=== PATIENT | male | born 1995 | race Caucasian/White ===

== ENCOUNTER 2016-08-14 01:27 | Inpatient (IN) | payer SELFPAY ==
[~2016-08-14] VITALS: Ht 182.9 cm; Wt 97.5 kg
[2016-08-14] VITALS (12 sets, daily range): BP systolic 117–145; BP diastolic 63–77
[2016-08-14] MEDS ORDERED: METOCLOPRAMIDE HCL 10 MG/2 ML VIAL. IV PRN (03:45)
[2016-08-14] MEDS: IV NORMAL SALINE 1000ML BAG 1,000 ML IV SCH ×3 (03:55→17:36)
[2016-08-14] MEDS: HYDROMORPHONE 2 MG/ML VIAL. IV PRN ×3 (03:55→17:35)
[2016-08-14] MEDS: PIPERACILLIN/TAZOBACTAM 3.375 GM in IV NORMAL SALINE 50ML 50 ML IV SCH ×2 (06:09→11:34)
--- NOTE | 2016-08-14 08:22 | PDOC2 ---
RONALD FUNEZ BUSINESS ADVISOR 08/14/16 0822: CONSULT Date of Consult Date of Consult DATE: 08/14/16 TIME: 08:16 Reason for Consult Reason for Consult: appendicitis Referring Physician Referring Physician: ER Identification/Chief Complaint Chief Complaint abdominal pain Source Source: Chart review, Patient History of Present Illness Reason for Visit: RLQ pain starting Thursday, by Thursday it was across lower abdomen. Pain is worsening. Associated nausea, no emesis. Aggravated by movement, alleviating factor is stop moving. No constipation or diarrhea. No similar symptoms in past Past Medical History Past Medical History no pertinent hx Past Surgical History Past Surgical History: No pertinent history Family History Family History: Other (noncontributory to current illness ) Social History No ALCOHOL: none Drugs: None Lives: Alone Current Medications Current Medications Current Medications Hydromorphone HCl (Dilaudid) 1 mg PRN Q2HR PRN IV SEVERE PAIN Last administered on 08/14/16 07:45; Start 08/14/16 at 03:45 Ondansetron HCl (Zofran) 4 mg PRN Q6HRS PRN IV NAUSEA/VOMITING; Start 08/14/16 at 03:45 Metoclopramide HCl 10 mg 10 mg PRN Q6HRS PRN IV NAUSEA/VOMITING; Start 08/14/16 at 03:45 Piperacillin Sod/ Tazobactam Sod 3.375 gm/Sodium Chloride 50 ml @ 100 mls/hr Q6HRS IV Last administered on 08/14/16 06:09; Start 08/14/16 at 06:00 Sodium Chloride (Iv Sodium Chloride 0.9% 1000ml Bag) 1,000 ml @ 100 mls/hr Q10H IV Last administered on 08/14/16 03:55; Start 08/14/16 at 04:00 Allergies Allergies: Coded Allergies: No Known Drug Allergies (Unverified , 08/14/16) ROS General: No: Chills, Other (fevers) PSYCHOLOGICAL ROS: No: Anxiety, Depression Eyes: No Blurry vision, No Double vision HEENT: No: Heacaches, Sore Throat Hematological and Lymphatic: No: Bleeding Problems, Blood Clots Respiratory: No: Cough, Shortness of breath Cardiovascular: No Chest Pain, No Palpitations Gastrointestinal: Yes Other (see hpi) Genitourinary: No Dysuria, No Hematuria Musculoskeletal: No Joint Pain, No Muscle Pain Neurological: No Confusion, No Numbness/Tingling Skin: No Pruritus, No Rash Physical Exam General: Alert, Oriented X3, Cooperative, No acute distress HEENT: PERRLA, Mucous membr. moist/pink Lungs: Clear to auscultation, Normal air movement Heart: Regular rate, Normal S1, Normal S2, No murmurs Abdomen: Soft, Other (ND, RLQ TTP, + RLQ TTP with palpation to RUQ, no guarding or rebound) Extremities: No clubbing, No cyanosis Skin: No rashes, No breakdown Neuro: Normal gait, Normal speech Psych/Mental Status: Mental status NL, Mood NL MUSCULOSKELETAL: No deformity, No swelling Vitals VITALS Vital Signs Date Time Temp Pulse Resp B/P Pulse Ox O2 Delivery O2 Flow Rate FiO2 08/14/16 07:45 Room Air 08/14/16 07:00 97.5 43 18 118/64 96 97.[address] from [facility]--possible early appendicitis Assessment/Plan Assessment/Plan Acute appendicitis Obesity BMI 29.2 plan lap appy today IGGY FRANCO MD 08/14/16 1438: CONSULT Allergies Allergies: Coded Allergies: No Known Drug Allergies (Unverified , 08/14/16) Assessment/Plan Assessment/Plan addendum i saw and examined him. i repeated [place] parts of the consult 21 reports to me RLQ since Thursday. It is worsening. It is severe. It is worse with movement. Constant pain. Now pain is across his lower abdomen but worse in RLQ. associated with loss of appetite. denies dysuria, penile dc, contact with others who are similarly ill. pmh denies psh tonsils sh employed as a cook. nonsmoker, nondrinker fh non contrib to this illness ros repeated--negative pe afeb vss does not appear toxic ct images reviewed abd soft nd focally tender in RLQ with localized rebound. +rosving's sign a/p acute appendicitis. to OR today for lap appy. risks of bleeding, infection, need to convert to open, injury to intra-abd structures, finding normal appendix /other pathology requiring treatment d/w him in front of his mother and sister. questions answered and he desires to proceed. RONALD FUNEZ BUSINESS ADVISOR Aug 14, 2016 08:22 IGGY FRANCO MD Aug 14, 2016 14:38
[2016-08-14] MEDS: ONDANSETRON PF 4 MG/2 ML VIAL. IV PRN ×2 (08:50→08:53)
[2016-08-14] MEDS ORDERED: CEFOXITIN SODIUM 2 GM in IV NORMAL SALINE 100ML 100 ML IV PRN (09:00)
[2016-08-14] MEDS ORDERED: HYDROMORPHONE 2 MG/ML VIAL. IV ONE (09:00)
[2016-08-14] MEDS ORDERED: HYDROMORPHONE 2 MG/ML VIAL. IM ONE (09:15)
[2016-08-14] MEDS ORDERED: IV RINGERS,LACTATED 1000ML 1,000 ML IV SCH (11:26)
[2016-08-14] MEDS ORDERED: MORPHINE SULFATE 2 MG/ML DISP.SYRIN. IV PRN (11:30)
[2016-08-14] MEDS ORDERED: HYDROMORPHONE 2 MG/ML VIAL. IV PRN (11:30)
[2016-08-14] MEDS ORDERED: ONDANSETRON PF 4 MG/2 ML VIAL. IV PRN (11:30)
[2016-08-14] MEDS ORDERED: FENTANYL PF 100 MCG/2 ML VIAL. IV PRN ×2 (11:30)
[2016-08-14] MEDS ORDERED: LIDOCAINE 1% 1 ML SYRINGE. ID PRN (11:30)
[2016-08-14] MEDS ORDERED: BUPIVAC MPF-EPI 0.5%-1:200000 30 ML VIAL. ONE (12:33)
[2016-08-14] MEDS ORDERED: SURGICEL HEMOSTAT 4X8 EACH. ONE (12:33)
--- NOTE | 2016-08-14 12:58 | HP ---
ADMIT DATE: 08/14/2016 CHIEF COMPLAINT: Abdominal pain. HISTORY OF PRESENT ILLNESS: The patient is a pleasant 21-year-old white male who presents with abdominal pain. We did a CAT scan that showed appendicitis. He rates his symptoms at 10 out 10. He has associated nausea. We are admitting the patient with consultation to General Surgery. PAST MEDICAL HISTORY: None. ALLERGIES: None. FAMILY HISTORY: Hypertension. SOCIAL HISTORY: Does not drink, smoke, or take drugs. He works as a cook. MEDICATIONS: Reviewed. Please refer to the MRAD. REVIEW OF SYSTEMS: GENERAL: No history of weight change, weakness, or fevers. SKIN: No bruising, hair changes, or rashes. EYES: No blurred, double or loss of vision. NOSE AND THROAT: No history of nosebleeds, hoarseness, or sore throat. HEART: He complains of chest pain. LUNGS: Denies cough, hemoptysis, wheezing, or shortness of breath. GASTROINTESTINAL: Complains of abdominal pain. GENITOURINARY: No history of frequency, urgency, hesitancy, or nocturia. NEUROLOGIC: Denies history of numbness, tingling, tremor, or weakness. PSYCHIATRIC: No history of panic, anxiety, or depression. ENDOCRINE: No history of heat or cold intolerance, polyuria, or polydipsia. EXTREMITIES: Denies muscle weakness, joint pain, pain on walking, or stiffness. PHYSICAL EXAMINATION: VITAL SIGNS: Temperature afebrile, pulse 43, respirations 18, blood pressure 118/64, and O2 sat 96% on room air. GENERAL: He is alert, cooperative. HEART: Normal S1, S2, at 58 beats per minute. LUNGS: Clear to auscultation. ABDOMEN: Soft. Decreased bowel sounds, tenderness at McBurney's point. ENDOCRINE: No thyromegaly. LYMPHATICS: No cervical nodes. HEMATOPOIETIC: No bruising. LABORATORY DATA: Pending. ASSESSMENT AND PLAN: Appendicitis. The patient has been admitted. We are consulting General Surgery. IV antibiotics, p.r.n. narcotics, p.r.n. antiemetics. Repeat his labs tomorrow. CHERELLE SALMON DO DR: BLAZE/negin JOB#: [id number] / [id number]
[2016-08-14] MEDS ORDERED: DEXAMETHASONE SOD PHOS 20 MG/5 ML VIAL. ONE (14:47)
[2016-08-14] MEDS ORDERED: ROCURONIUM 50 MG/5 ML VIAL. ONE (14:47)
[2016-08-14] MEDS ORDERED: FENTANYL PF 100 MCG/2 ML VIAL. ONE ×2 (14:47→15:18)
[2016-08-14] MEDS ORDERED: MIDAZOLAM HCL 2 MG/2 ML VIAL. ONE (14:47)
[2016-08-14] MEDS ORDERED: ONDANSETRON PF 4 MG/2 ML VIAL. ONE (14:47)
[2016-08-14] MEDS ORDERED: LIDOCAINE 2% 100 MG/5 ML DISP.SYRIN. ONE (14:47)
[2016-08-14] MEDS ORDERED: SUCCINYLCHOLINE 200 MG/10 ML VIAL. ONE (14:47)
[2016-08-14] MEDS ORDERED: PROPOFOL 20 ML IV ONE (14:47)
[2016-08-14] MEDS ORDERED: GLYCOPYRROLATE 1 MG/5 ML VIAL. ONE (15:42)
[2016-08-14] MEDS ORDERED: NEOSTIGMINE METHYLSULFATE 5 MG/5 ML SYRINGE. ONE (15:42)
[2016-08-14] MEDS ORDERED: DESFLURANE 31 TO 60 MINUTES IH ONE (15:50)
[2016-08-14] MEDS ORDERED: KETOROLAC 30 MG/ML SYRINGE FOR OR. INJ ONE (15:50)
--- NOTE | 2016-08-14 15:57 | PDOC ---
BRIEF OPERATIVE NOTE Pre-Op Diagnosis #[id number] appendicitis lap sandrita rojas ebl 10 ivf 1000 corey well to rr. IGGY FRANCO MD Aug 14, 2016 15:57
[2016-08-14] MEDS ORDERED: ONDA4TAB7 PO (16:00)
[2016-08-14] MEDS ORDERED: HYDR-971 PO (16:00)
[2016-08-14] MEDS ORDERED: KETOROLAC TROMETHAMINE 30 MG/ML SYRINGE. IV PRN (16:00)
[2016-08-14] MEDS: OXYCODONE/APAP 5/325 TABLET. PO PRN (19:23)
--- NOTE | 2016-08-14 21:56 | OP ---
DATE OF SURGERY: 08/14/2016 PREOPERATIVE DIAGNOSIS: Acute appendicitis. POSTOPERATIVE DIAGNOSIS: Acute appendicitis. PROCEDURE: Laparoscopic appendectomy. SURGEON: Iggy Franco MD ANESTHESIA: General. ESTIMATED BLOOD LOSS: 10 mL. IV FLUIDS: 1000 mL. INDICATIONS: The patient is a 21-year-old male who presents with acute appendicitis. FINDINGS: He had an acute nonperforated, nongangrenous appendicitis. DESCRIPTION OF PROCEDURE: After informed consent was obtained, the patient was taken to the operating room and placed in the supine position. After adequate induction of general anesthesia, he was prepped and draped in usual sterile fashion. An umbilical skin incision was made with a scalpel through subcutaneous tissues with a hemostat. [facility] was used to grab the fascia and lift anteriorly. Veress was used to gain access to the peritoneal cavity. Low opening pressures confirmed intraperitoneal placement of Veress. Pneumoperitoneum to 15 mmHg was established followed by placement of 5 mm port. A 5-mm 30-degree lens was inserted, which revealed good port placement. No evidence of entry trauma. He was placed head downward and rotated towards his left. Two additional ports were placed under direct vision. The sites were injected with local anesthetic. Skin incisions were made and then a 5-mm suprapubic port and a 12-mm left lower quadrant port was placed. The appendix was easily visible in the right lower quadrant. The distal half of it was acutely inflamed. A window was made at the base of the appendix. Laparoscopic DAVID blue load stapler was used to divide the base of the appendix. Laparoscopic DAVID white load stapler was then used to divide the mesoappendix. The appendix was placed in laparoscopic bag and brought through the left lower quadrant incision. There was some bleeding from the mesoappendiceal staple line that was easily controlled with a laparoscopic clip resource conservation specialist. At this point, right lower quadrant, right upper quadrant and pelvis were all irrigated. Irrigant returned clear. The weatherization installer fluid was evacuated with suction. Staple lines were intact and hemostatic, and healthy in appearance. Fascial closure device was used to close the fascia and the left lower quadrant incision using 0 Vicryl suture under direct laparoscopic vision. One final look at the right lower quadrant revealed it to continue to be hemostatic. Ports were removed under direct vision. They were hemostatic. Pneumoperitoneum was desufflated. Skin incisions were closed with 4-0 Monocryl in subcuticular fashion. Sterile dressings were placed. He tolerated the procedure well. There were no apparent complications. He was in the process of being transferred in stable condition to then recovery room. IGGY FRANCO MD DR: YAYO/negin JOB#: [id number] / [id number] CHERELLE Chaudhary DO
[2016-08-15] MEDS: OXYCODONE/APAP 5/325 TABLET. PO PRN ×3 (00:02→10:49)
[2016-08-15 03:16] VITALS: BP 124/73
[2016-08-15 07:00] VITALS: BP 130/61
--- NOTE | 2016-08-15 08:13 | ACF ---
Admit Criteria Forms Admit Criteria Forms Admit Criteria Forms ABDOMINAL PAIN Clinical Indications for Admission to Inpatient Care (Place 'X' for any and all applicable criteria): Admission is indicated for ANY ONE of the following(1)(2)(3)(4)(5): [ ]I. Inpatient admission required rather than observation care (Also use Abdominal Pain: Observation Care, as appropriate) because of ANY ONE of the following: [ ]a) Severe pain requiring acute inpatient management [ ]b) Identification of etiology/finding that requires inpatient care (eg, aortic dissection, free air) [ ]c) Absent bowel sounds with complete ileus(6) [ ]d) Suspected toxic megacolon [ ]e) Severe electrolyte abnormalities requiring inpatient care [ ]f) High fever or infection requiring inpatient admission as indicated by ANY ONE of following(7)(8): [ ] i) Appropriate outpatient or observational care antimicrobial treatment unavailable, not effective, or not feasible [ ] ii) Documented bacteremia [ ] iii) Temperature > 104.9 degrees F (oral) [ ] iv) T >103.1 F (oral) or < 96.8 F(rectal) that does not respond to all emergency treatment measures [ ]g) Signs of intestinal obstruction [B] [ ]h) Hemodynamic instability [ ]i) IV fluid to replace significant ongoing losses (greater than 3 L/m2 per day) (12)(13) [ ]j) Percutaneous or open drainage (eg, abscess, biliary tract ) procedures [ ]k) Parenteral nutrition regimen that must be implemented on inpatient basis [ ]l) Other condition,treatment or monitoring requiring inpatient admission. [ ]II. Peritoneal signs present [X]III. Surgery needed that cannot be performed on an ambulatory basis. [ ]IV. Evaluation requires patient to not eat or drink for extended period ( eg, more than 24 hours). [ ]V. Contraindications and/or Inappropriate clinical situations for Observational Care in patients with abdominal pain, when ANY ONE of the following is required: [ ]a) Thorough evaluation is required to prevent catastrophic events due to delays in diagnosing (e.g.Mesenteric ischemia) 1,3 [ ]b) Patient with severe pathology or with chronic symptoms unlikely to improve in the ED stay (3) [ ]. General contraindications and/or Inappropriate clinical situations for Observational Care in patients with abdominal pain, when ANY ONE of the following is required: [ ]a) Prediction of prolongation of LOS based on ANY ONE of the following may be considered as a contraindication for observational care 2, 3, 4, 5, 6, 7, 8, 9, 10, 11 [ ]i) Age > 65 yrs. [ ]ii) Patient arriving by ambulance [ ]iii) Patient with high acuity [ ]iv) Patient requiring vital sign monitoring [ ]v) Patient on IV medication [ ]b) Systolic blood pressures 180mmHg 3,12 [ ]c) Patient with altered mental status including delirium and other alteration of consciousness, (3) [ ]d) Patient whose discharge disposition will be to a [facility] home or rehabilitation home should not be managed in Emergency Department Observation Unit. CMS rule requires 3 days hospital stay before such placement.3,13 [ ]e) Patient with failure to thrive due to broad array of etiologies 3,16,17 [ ]f) Inability to ambulate 3,14 Extended stay beyond goal length of stay may be needed for(2)(3): [ ]a) Persistent abdominal pain with suspected intra-abdominal process [ ]b) Diagnosed condition requiring continued stay (e.g., pancreatitis, complicated diverticulitis) [ ]c) Surgery (e.g., colectomy) The original [employer] content created by [employer] has been revised. The portions of the content which have been revised are identified through the use of italic text or in bold, and [facility] [employer] [facility] has neither reviewed nor approved the modified material.All other unmodified content is copyright [employer]. Please see references footnoted in the original [employer] [facility] edition 2016 BIJU TOURE Aug 15, 2016 08:13
--- NOTE | 2016-08-15 08:57 | PDOC ---
SURGICAL PROGRESS NOTE Subjective Tolerating diet incisional pain, improved from preop urinating Vital Signs Vital Signs Date Time Temp Pulse Resp B/P Pulse Ox O2 Delivery O2 Flow Rate FiO2 08/15/16 08:34 Room Air 08/15/16 07:00 98.4 59 18 130/61 95 98.4 08/14/16 19:30 94.0 I&O Intake and Output 08/15/16 07:00 Intake Total 4317 ml Output Total 500 ml Balance 3817 ml Intake Oral 480 ml IV Total 2787 ml Other 1050 ml Output Urine Total 490 ml Estimated Blood Loss 10 ml # Voids 2 PATIENT HAS A HACKETT: No (retention) General: Alert, Oriented X3, Cooperative, No acute distress Abdomen: Soft, Other (ND, lap dressings dry, minimal incisional pain) Assessment/Plan s/p lap appy ok to [place] home FU 2 weeks Problems: RONALD FUNEZ APRN Aug 15, 2016 08:57
[2016-08-15] MEDS: IV NORMAL SALINE 1000ML BAG 1,000 ML IV SCH (10:00)
[2016-08-15 11:00] VITALS: BP 125/62
--- NOTE | 2016-08-15 12:09 | PDOC ---
PROGRESS NOTES Chief Complaint Chief Complaint Acute Appendicitis History of Present Illness History of Present Illness Patient doing well. Has no complaints s/p laparoscopic appendectomy. Is eating solid foods. Requested a work release / return to work note. Vitals Vitals Vital Signs Date Time Temp Pulse Resp B/P Pulse Ox O2 Delivery O2 Flow Rate FiO2 08/15/16 11:00 98.5 71 16 125/62 94 Room Air 98.5 08/14/16 19:30 94.0 Physical Exam General: Alert, Oriented X3, Cooperative, No acute distress Heart: Regular rate, Normal S1, Normal S2, No murmurs Abdomen: Soft, Other (ND, lap dressings dry, minimal incisional pain) Extremities: No clubbing, No cyanosis Skin: No rashes, No breakdown Review of Systems Review of Systems denies fever, chills abdominal pain appropriate for this type of procedure Assessment and Plan Assessmemt and Plan ASSESSMENT: - Acute appendicitis, resolved; Appendectomy performed 08/15/15 PLAN: - discharge if cleared by general surgery - repeat labs if not discharged - return to work note provided - cont to advance diet as tolerated - cont wound care Problems: Comment Review of Relevant I have reviewed the following items arpita (where applicable) has been applied. Medications Current Medications Hydromorphone HCl (Dilaudid) 1 mg PRN Q2HR PRN IV SEVERE PAIN Last administered on 08/14/16 17:35; Start 08/14/16 at 03:45 Ondansetron HCl (Zofran) 4 mg PRN Q6HRS PRN IV NAUSEA/VOMITING, 1ST CHOICE Last administered on 08/14/16 08:53; Start 08/14/16 at 03:45 Metoclopramide HCl 10 mg 10 mg PRN Q6HRS PRN IV NAUSEA/VOMITING, 2ND CHOICE; Start 08/14/16 at 03:45 Piperacillin Sod/ Tazobactam Sod 3.375 gm/Sodium Chloride 50 ml @ 100 mls/hr Q6HRS IV Last administered on 08/14/16 11:34; Start 08/14/16 at 06:00; Stop 08/14 at 16:00; Status DC Sodium Chloride 1,000 ml @ 100 mls/hr Q10H IV Last administered on 08/14/16 17 :36; Start 08/14/16 at 04:00 Cefoxitin Sodium/ Sodium Chloride (Mefoxin/Iv Sodium Chloride 0.9% 100ml) 100 ml @ 200 mls/hr 1X PREOP PRN IV senior formulation scientist to OR; Start 08/14/16 at 09:00; Stop at 08:59; Status DC Hydromorphone HCl (Dilaudid) 0.5 mg 1X ONCE IM ; Start 08/14/16 at 09:15; Stop 08/14/16 at 09:15; Status DC Hydromorphone HCl (Dilaudid) 0.5 mg 1X ONCE IV Last administered on 08/14/16t 08:54; Start 08/14/16 at 09:00; Stop 08/14/16 at 09:01; Status DC Ondansetron HCl (Zofran) 4 mg PRN Q6HRS PRN IV Nausea; Start 08/14/16 at 11:30; Stop 08/15/16 at 11:29; Status DC Fentanyl Citrate (Fentanyl 2ml Vial) 25 mcg PRN Q5MIN PRN IV MILD PAIN; Start 08/14/16 at 11:30; Stop 08/15/16 at 11:29; Status DC Fentanyl Citrate (Fentanyl 2ml Vial) 50 mcg PRN Q5MIN PRN IV MODERATE PAIN; Start 08/14/16 at 11:30; Stop 08/15/16 at 11:29; Status DC Morphine Sulfate 1 mg 1 mg PRN Q10MIN PRN IV SEVERE PAIN; Start 08/14/16 at 11: 30; Stop 08/15/16 at 11:29; Status DC Lactated Ringer's (Iv Lactated Ringers) 1,000 ml @ 0 mls/hr Q0M IV ; Start 08/14 at 11:26; Stop 08/14/16 at 23:25; Status DC Lidocaine HCl 2 ml 1X PRN PRN ID IV START; Start 08/14/16 at 11:30; Stop at 11:29; Status DC Hydromorphone HCl (Dilaudid) 0.5 mg PRN Q10MIN PRN IV SEV PAIN,Second choice; Start 08/14/16 at 11:30; Stop 08/15/16 at 11:29; Status DC Cellulose 1 each STK-MED ONCE .ROUTE ; Start 08/14/16 at 12:33; Stop 08/14/16 at 12:34; Status DC Bupivacaine HCl/ Epinephrine Bitart (Sensorcain-Mpf Epi 0.5%-1:[id number]) 30 ml STK -MED ONCE .ROUTE Last administered on 08/14/16t 15:34; Start 08/14/16 at 12:33; Stop 08/14/16 at 12:34; Status DC Dexamethasone Sodium Phosphate (Decadron) 20 mg STK-MED ONCE .ROUTE ; Start 08/14 at 14:47; Stop 08/14/16 at 14:48; Status DC Ondansetron HCl 4 mg 4 mg STK-MED ONCE .ROUTE ; Start 08/14/16 at 14:47; Stop 08/14/16 at 14:48; Status DC Propofol (Diprivan) 20 ml @ As Directed STK-MED ONCE IV ; Start 08/14/16 at 14:47 ; Stop 08/14/16 at 14:48; Status DC Lidocaine HCl 100 mg STK-MED ONCE .ROUTE ; Start 08/14/16 at 14:47; Stop 08/14/16 at 14:48; Status DC Midazolam HCl (Versed) 2 mg STK-MED ONCE .ROUTE ; Start 08/14/16 at 14:47; Stop 08/14/16 at 14:48; Status DC Fentanyl Citrate (Fentanyl 2ml Vial) 100 mcg STK-MED ONCE .ROUTE ; Start at 14:47; Stop 08/14/16 at 14:48; Status DC Succinylcholine Chloride (Anectine) 200 mg STK-MED ONCE .ROUTE ; Start 08/14/16 at 14:47; Stop 08/14/16 at 14:48; Status DC Rocuronium Columbia (Zemuron) 50 mg STK-MED ONCE .ROUTE ; Start 08/14/16 at 14:47 ; Stop 08/14/16 at 14:48; Status DC Fentanyl Citrate (Fentanyl 2ml Vial) 100 mcg STK-MED ONCE .ROUTE ; Start at 15:18; Stop 08/14/16 at 15:19; Status DC Glycopyrrolate (Robinul) 1 mg STK-MED ONCE .ROUTE ; Start 08/14/16 at 15:42; Stop 08/14/16 at 15:43; Status DC Neostigmine Methylsulfate 5 mg STK-MED ONCE .ROUTE ; Start 08/14/16 at 15:42; Stop 08/14/16 at 15:43; Status DC Ketorolac Tromethamine (Toradol For Or Only) 30 mg STK-MED ONCE INJ ; Start 08/14 at 15:50; Stop 08/14/16 at 15:51; Status DC Desflurane (Suprane) 30 ml STK-MED ONCE IH ; Start 08/14/16 at 15:50; Stop at 15:51; Status DC Oxycodone/ Acetaminophen (Percocet 5/325) 2 tab PRN Q4HRS PRN PO PAIN Last administered on 08/15/16 10:49; Start 08/14/16 at 16:00 Ketorolac Tromethamine (Toradol) 30 mg PRN Q6HRS PRN IV PAIN Last administered on 08/15/16 02:37; Start 08/14/16 at 16:00; Stop 08/19/16 at 15:59 Active Scripts Active Zofran (Ondansetron Hcl) 4 Mg Tablet 1 Tab PO Q6HRS Dawson 5-325 Tablet (Acetaminophen/Hydrocodone Bitart) 1 Each Tablet 1-2 Tab PO Q4-6HRS Vitals/I & O Vital Sign - Last 24 Hours 08/14/16 08/14/16 08/14/16 08/14/16 14:12 16:09 16:24 16:39 Temp 98.0 97.2 96.8 98.0 97.2 96.8 Pulse 45 56 63 68 Resp 20 20 22 20 B/P 129/65 135/66 161/88 161/88 Pulse Ox 98 99 97 97 O2 Delivery Room Air Simple Mask Room Air Room Air O2 Flow Rate 10 08/14/16 08/14/16 08/14/16 08/14/16 16:53 16:57 17:08 17:30 Temp 97.0 97.7 97.0 97.7 Pulse 78 78 45 Resp 20 20 18 B/P 163/80 126/68 124/73 Pulse Ox 98 99 92 O2 Delivery Room Air Room Air Room Air Room Air 08/14/16 08/14/16 08/14/16 08/14/16 17:35 17:45 18:00 18:05 Temp 97.8 97.8 97.8 97.8 Pulse 51 59 Resp 16 16 B/P 130/69 121/67 Pulse Ox 93 95 O2 Delivery Room Air Room Air Room Air Room Air 08/14/16 08/14/16 08/14/16 08/14/16 18:15 18:30 19:00 19:20 Temp 97.7 98.0 97.7 98.0 Pulse 63 51 49 Resp 18 16 18 B/P 135/63 128/65 140/71 Pulse Ox 94 96 93 O2 Delivery Room Air Room Air Room Air Room Air 08/14/16 08/14/16 08/14/16 08/14/16 19:23 19:30 21:30 23:23 Temp 97.7 98.1 97.7 98.1 Pulse 55 46 51 Resp 18 18 20 18 B/P 128/73 129/77 134/68 Pulse Ox 94 O2 Delivery Room Air Room Air Room Air O2 Flow Rate 94.0 08/15/16 08/15/16 08/15/16 08/15/16 00:02 01:02 03:16 06:58 Temp 98.6 98.6 Pulse 58 Resp 18 18 20 B/P 124/73 Pulse Ox 98 O2 Delivery Room Air Room Air Room Air 08/15/16 08/15/16 08/15/16 08/15/16 07:00 07:00 08:34 10:49 Temp 98.4 98.4 Pulse 59 Resp 18 B/P 130/61 Pulse Ox 95 O2 Delivery Room Air Room Air Room Air Room Air 08/15/16 11:00 Temp 98.5 98.5 Pulse 71 Resp 16 B/P 125/62 Pulse Ox 94 O2 Delivery Room Air Intake and Output 08/14/16 08/14/16 08/15/16 15:00 23:00 07:00 Intake Total 2087 ml 2230 ml Output Total 300 ml 200 ml Balance 1787 ml 2030 ml CHERELLE SALMON III DO Aug 15, 2016 12:09
--- NOTE | 2016-08-18 14:12 | PATHOLOGY ---
PATHOLOGY REPORT * * * * * * * * FINAL DIAGNOSIS: Appendix, laparoscopic appendectomy: - Subacute and focal early acute appendicitis. COMMENT: There is no evidence of rupture. (JPM:; d/t: 08/18/16) REPORT ELECTRONICALLY SIGNED BY: Orville Miner M.D. DATE/TIME: 08/18/2016 14:12 * * * * * * * * GROSS PATHOLOGY: Received in formalin labeled "Jesus Joy appendix," is an appendix measuring 6.1 cm in length and up to 0.9 cm in diameter with a moderate amount of attached mesoappendix. The serosal surface is [id number], glistening in appearance with moderate vasculature near the distal tip. Sectioning reveals a pinpoint to slightly patent lumen filled with a slight amount of fecal material. Ship Mate sections are submitted in cassette A1. (CAA; 08/15/2016) INITIAL CPT CODE(S): A; 78837 Professional services performed [place] [address] Technical services performed by [facility] at [address] [place] [address]. SPECIMEN(S) RECEIVED: A.Appendix CLINICAL HISTORY: Appendicitis PATIENT: JESUS JOY /AGE: 106/23/1995 (Age: 21) PATIENT #: [id number] ALT CASE #: SPECIMEN COLLECTION DATE: 08/14/2016 SPECIMEN RECEIVED DATE: 08/15/2016 [facility] - [address] [place] [address] - PHONE: [phone] * * * END OF REPORT * * *
== END 2016-08-15 12:50 | disposition home or self-care (01) | DRG 343 ==
LOC: 4 NORTH 02:29
PROVIDERS: ADMIT Internal Medicine; ATTEND Internal Medicine
PROC: 0DTJ4ZZ Resection of Appendix, Percutaneous Endoscopic Approach (ICD-10-PCS; principal; 2016-08-14 14:45)
DX: K35.80 Unspecified acute appendicitis (principal); E66.9 Obesity, unspecified; Z68.29 Body mass index [BMI] 29.0-29.9, adult; K66.8 Other specified disorders of peritoneum; Z82.49 Family history of ischemic heart disease and other diseases of the circulatory system
CPT/HCPCS: C1782; J0330; J1100; J1170; J1885; J2250; J2405; J2543; J2704; J2710; J3010; J3490; J7030

== ENCOUNTER 2016-12-22 10:35 | Emergency (ER) | payer SELFPAY ==
[~2016-12-22 10:35] MED LIST: HYDR-971 PO; ONDA4TAB7 PO
[2016-12-22 10:42] VITALS: BP 149/89
[2016-12-22] MEDS ORDERED: CYCL10TA2 PO (11:42)
--- NOTE | 2016-12-22 11:42 | PHYS DOC ---
Past Medical History Past Medical History: No Pertinent History Past Surgical History: Appendectomy Alcohol Use: None Drug Use: None Adult General Chief Complaint Chief Complaint: BACK PAIN - NO INJURY [facility] HPI Patient is a 21 year old male presents to the emergency department stating that he's been having left lower back pain for the last week. He states his been taken Aleve for the pain and discomfort with minimal relief. 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 He denies any trauma or injuries denies any falls. Patient denies any loss of bowel or bladder. Denies any numbness or tingling down to his lower extremities. Denies any history of back pain in the past. Review of Systems Review of Systems Constitutional: Denies fever or chills [] Eyes: Denies change in visual acuity, redness, or eye pain [] HENT: Denies nasal congestion or sore throat [] Respiratory: Denies cough or shortness of breath [] Cardiovascular: No additional information not addressed in HPI [] GI: Denies abdominal pain, nausea, vomiting, bloody stools or diarrhea [] : Denies dysuria or hematuria [] Musculoskeletal: Complaining of left lower back pain. Denies joint pain Integument: Denies rash or skin lesions [] Neurologic: Denies headache, focal weakness or sensory changes [] Endocrine: Denies polyuria or polydipsia [] Allergies Allergies Allergies Coded Allergies Type Severity Reaction Last Updated Verified No Known Drug Allergies 08/14/16 No Physical Exam Physical Exam Constitutional: Well developed, well nourished, no acute distress, non-toxic appearance. [] HENT: Normocephalic, atraumatic, bilateral external ears normal, oropharynx moist, no oral exudates, nose normal. [] Eyes: PERRLA, EOMI, conjunctiva normal, no discharge. [] Neck: Normal range of motion, no tenderness, supple, no stridor. [] Cardiovascular:Heart rate regular rhythm, no murmur [] Lungs & Thorax: Bilateral breath sounds clear to auscultation []] Skin: Warm, dry, no erythema, no rash. [] Back: No cervical spine, thoracic spine or lumbar spine tenderness, no step- offs no deformities and no crepitus noted. Patient did have tenderness on the left lower back area. Extremities: No tenderness, no cyanosis, no clubbing, ROM intact, no edema. Patient was able to left the left leg with minimal discomfort. Patient was able to lift the right leg with no discomfort noted at all. Peripheral pulses bilaterally 2+ cap refill brisk less than 2 seconds. Neurologic: Alert and oriented X 3, normal motor function, normal sensory function, no focal deficits noted. [] Psychologic: Affect normal, judgement normal, mood normal. [] Current Patient Data Vital Signs Vital Signs Date Time Temp Pulse Resp B/P (MAP) Pulse Ox O2 Delivery O2 Flow Rate FiO2 12/22/16 10:42 98.6 47 18 149/89 (109) 98 Room Air 98.6 EKG EKG [] Radiology/Procedures Radiology/Procedures [] Course & Med Decision Making Course & Med Decision Making Pertinent Labs and Imaging studies reviewed. (See chart for details) Patient will be discharged home in stable condition with recommendations for ice packs on 20 minutes off 20 minutes several times today. Patient was also encouraged to use ibuprofen 800 mg every 8 hours. This also instructed to take this medication with food as it will cause an upset stomach. Patient will be provided with Flexeril. Flexeril will cause drowsiness don't take any be alert and oriented. Recommendations to follow-up with primary care physician in the next 7-10 days. Signs and symptoms to return back to emergency prior to have been provided. Patient agrees with discharge instructions treatment regimens and follow-up recommendations. [] Dragon Disclaimer Dragon Disclaimer This electronic medical record was generated, in whole or in part, using a voice recognition dictation system. Departure Departure Impression: Primary Impression: Low back strain Disposition: 01 HOME, SELF-CARE Condition: STABLE Referrals: NO PCP (PCP) Patient Instructions: Back Pain, Adult, [id number] Additional Instructions: Activity as tolerated. Ibuprofen 800 mg every 8 hours with food. Stop taking few develop an upset stomach. Flexeril for muscle spasms and muscle tightness. This medication will cause drowsiness do not take any be alert and oriented. Ice packs on 20 minutes off 20 minutes several times a day. Follow-up with your primary care physician in the next 7-10 days. Return back to emergency prior for signs and symptoms of become worse. Scripts Cyclobenzaprine Hcl (CYCLOBENZAPRINE HCL) 10 Mg Tablet 10 MG PO TID Y for MUSCLE SPASMS, #30 TAB Prov: GENOVEVA REYES APRN 12/22/16 GENOVEVA REYES APRN Dec 22, 2016 11:42
== END 2016-12-22 11:48 | disposition home or self-care (01) ==
LOC: ER 10:35
DX: S39.012A Strain of muscle, fascia and tendon of lower back, initial encounter (principal); Z90.49 Acquired absence of other specified parts of digestive tract; X58.XXXA Exposure to other specified factors, initial encounter; Y93.89 Activity, other specified; Y92.89 Other specified places as the place of occurrence of the external cause; Y99.8 Other external cause status
CPT/HCPCS: 99283

== ENCOUNTER 2017-03-17 12:39 | Emergency (ER) | payer SELFPAY ==
[~2017-03-17] VITALS: Ht 182.9 cm; Wt 97.5 kg
[~2017-03-17 12:39] MED LIST changes: +CYCL10TA2 PO
[2017-03-17 12:50] VITALS: BP 123/75
--- NOTE | 2017-03-17 13:21 | PHYS DOC ---
Past Medical History Past Medical History: No Pertinent History Past Surgical History: Tonsillectomy, Other Additional Past Surgical Histo: ADNOIDECTOMY Alcohol Use: None Drug Use: None Adult General Chief Complaint Chief Complaint: BACK PAIN - NO INJURY HPI HPI Patient is a 21 year old male presents the ED complaining of back injury 3 days ago. 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 States he felt a pull in his lower back. Describes the pain as sharp. Rates the pain as 8 out of 10. Patient able to ambulate without assistance. Denies trauma, radiating pain, bowel/bladder changes, saddle anesthesia, nausea/vomiting, abdominal pain or fever. Review of Systems Review of Systems Constitutional: Denies fever or chills [] Eyes: Denies change in visual acuity, redness, or eye pain [] HENT: Denies nasal congestion or sore throat [] Respiratory: Denies cough or shortness of breath [] Cardiovascular: No additional information not addressed in HPI [] GI: Denies abdominal pain, nausea, vomiting, bloody stools or diarrhea [] : Denies dysuria or hematuria [] Musculoskeletal: Complains of back pain. Denies joint pain. [] Integument: Denies rash or skin lesions [] Neurologic: Denies headache, focal weakness or sensory changes [] Endocrine: Denies polyuria or polydipsia [] Current Medications Current Medications Current Medications Medications (Trade) Dose Ordered Sig/Richard Start Time Stop Time Status Last Admin Dose Admin Acetaminophen/ Codeine Phosphate (Tylenol #3) 1 tab 1X ONCE 03/17/17 13:30 03/17/17 13:31 DC 03/17/17 13:24 1 TAB Allergies Allergies Allergies Coded Allergies Type Severity Reaction Last Updated Verified No Known Drug Allergies 08/14/16 No Physical Exam Physical Exam Constitutional: Well developed, well nourished, no acute distress, non-toxic appearance. [] HENT: Normocephalic, atraumatic, bilateral external ears normal, oropharynx moist, no oral exudates, nose normal. [] Eyes: PERRLA, EOMI, conjunctiva normal, no discharge. [] Neck: Normal range of motion, no tenderness, supple, no stridor. [] Cardiovascular:Heart rate regular rhythm, no murmur [] Lungs & Thorax: Bilateral breath sounds clear to auscultation [] Abdomen: Bowel sounds normal, soft, no tenderness, no masses, no pulsatile masses. Refused rectal exam. [] Skin: Warm, dry, no erythema, no rash. [] Back: MILD RIGHT LUMBAR PARASPINAL TENDERNESS. FULL RANGE OF MOTION. NO RADIATING PAIN. PATIENT ABLE TO AMBULATE WITHOUT PAIN. No CVA tenderness. [] Extremities: No tenderness, no cyanosis, no clubbing, ROM intact, no edema. [] Neurologic: Alert and oriented X 3, normal motor function, normal sensory function, no focal deficits noted. [] Psychologic: Affect normal, judgement normal, mood normal. [] Current Patient Data Vital Signs Vital Signs Date Time Temp Pulse Resp B/P (MAP) Pulse Ox O2 Delivery O2 Flow Rate FiO2 03/17/17 13:24 16 Room Air 03/17/17 12:50 98.2 50 96 98.2 EKG EKG [] Radiology/Procedures Radiology/Procedures []PROCEDURE: LUMBAR SPINE 2-3V Lumbar spine, 3 views, 03/17/2017: History: Low back pain The lumbar heights and intervertebral disc spaces are well-maintained. No fracture or dislocation is identified. Surgical clips are present in the right lower quadrant. The paraspinous soft tissues are otherwise unremarkable. IMPRESSION: No acute lumbar spine abnormality is detected. Course & Med Decision Making Course & Med Decision Making Pertinent Labs and Imaging studies reviewed. (See chart for details) []Discussed imaging findings with patient. Patient's pain improved. Vital stable , no acute distress. No focal neural deficits. Discussed follow-up with orthopedics this week. Provided contact information/education. Discussed reasons to return to the ED. Patient understands and agrees with plan. Dragon Disclaimer Dragon Disclaimer This electronic medical record was generated, in whole or in part, using a voice recognition dictation system. Departure Departure Impression: Primary Impression: Low back strain Disposition: 01 HOME, SELF-CARE Condition: STABLE Referrals: NO PCP (PCP) RAJAN HORNE MD Patient Instructions: Back Injury Prevention, Back Pain in Scripts Cyclobenzaprine Hcl (CYCLOBENZAPRINE HCL) 5 Mg Tablet 5 MG PO TID, #10 TAB Prov: JAKY PULIDO 03/17/17 Ibuprofen (IBUPROFEN) 800 Mg Tablet 800 MG PO PRN Q6HRS Y for INFLAMMATION, #20 TAB Prov: JAKY PUILDO 03/17/17 JAKY PULIDO Mar 17, 2017 13:21
[2017-03-17] MEDS ORDERED: ACETAMINOPHEN/CODEINE 300/30MG TABLET. PO ONE (13:30)
--- NOTE | 2017-03-17 13:47 | RAD ---
Lumbar spine, 3 views, 03/17/2017: History: Low back pain The lumbar heights and intervertebral disc spaces are well-maintained. No fracture or dislocation is identified. Surgical clips are present in the right lower quadrant. The paraspinous soft tissues are otherwise unremarkable. IMPRESSION: No acute lumbar spine abnormality is detected.
[2017-03-17] MEDS ORDERED: CYCL5TAB PO (13:53)
[2017-03-17] MEDS ORDERED: IBUP-1060 PO (13:53)
== END 2017-03-17 13:59 | disposition home or self-care (01) ==
LOC: ER 12:39
DX: S39.012A Strain of muscle, fascia and tendon of lower back, initial encounter (principal); X58.XXXA Exposure to other specified factors, initial encounter; Y93.89 Activity, other specified; Y92.89 Other specified places as the place of occurrence of the external cause; Y99.8 Other external cause status
CPT/HCPCS: 72100; 99284